=== PATIENT | female | born 2000 | race African-American/Black ===

== ENCOUNTER 2020-05-08 18:07 | Emergency (ER) | payer BC, SELFPAY ==
[2020-05-08 18:22] VITALS: BP 117/72; PULSE 86; RESP 16; TEMP 36.8; O2SAT 100
--- NOTE | 2020-05-08 18:50 | ED.GENADULT ---
HPI - General Adult General Chief complaint: Upper Respiratory Infection Stated complaint: sore throat Time Seen by Provider: 05/08/20 18:50 Source: patient and RN notes reviewed Mode of arrival: ambulatory Limitations: no limitations History of Present Illness HPI narrative: 20-year-old -[place] female presents with complaints of sore throat and runny nose for the past 3 days. Claritin and medication for sore throat without relief. No high fevers, drooling, neck or throat swelling. Pain is bilateral. Hurts to swallow. Exacerbation factors consist of eating and drinking. Rhinorrhea and nasal congestion. No voice change. No nausea, vomiting, or abdominal pain. Tolerating liquids well. Denies chills, dyspnea, difficulty swallowing, jaw pain, dental pain, facial pain, foreign body sensation, and rash. LMP 04/11/20. Remains active. The patient reports she have not been diagnosed with COVID-19. Eliana does work at [employer]. The patient reports she is not waiting for the results of a COVID-19 lab test. The patient reports she do not have fever, chills, weakness, or fatigue. The patient reports she do not have a new or worsening cough or shortness of breath. Denies chest pain. The patient reports she do not have any loss of taste, sore throat, and diarrhea. Denies recent traveling. Denies concerns for COVID-19 or exposures been home with limited outdoor exposure except for essential household needs, work, and return home. At this time, patient is not suspected of having COVID-19. Some parts of this dictation were generated by voice recognition software and may contain typographical and/or grammatical inaccuracies. Related Data Allergies Allergy/AdvReac Type Severity Reaction Status Date / Time pineapple Allergy Hives Verified 06/21/19 10:14 Review of Systems Review of Systems: Narrative: CONSTITUTIONAL: Denies fever, chills, sweats. EYES: Denies visual changes, redness, discharge. ENT: Denies otalgia. Complains of sore throat, rhinorrhea, congestion. CARDIOVASCULAR: Denies chest pain, palpitations, edema. RESPIRATORY: Denies dyspnea, wheezing, cough. GASTROINTESTINAL: Denies abdominal pain, nausea, vomiting, diarrhea. GENITOURINARY: Denies dysuria, hematuria, abnormal discharge. SKIN: Denies rash or itching. MUSCULOSKELETAL: Denies acute back pain, joint pain, or myalgia. NEUROLOGIC: Denies numbness or focal weakness. PSYCHIATRIC: Denies anxiety or depression. All systems reviewed & are unremarkable except as noted in HPI and below. [facility] Past Medical History Medical History (Updated 05/09/20 @ 00:00 by Ara Daesdras) Asthma Surgical History Surgical History (Updated 05/08/20 @ 19:10 by SUN Bond) No significant past surgical history Family History Family History (Updated 05/08/20 @ 19:11 by SUN Bond) Father , Gun violence Murder Mother Diabetes mellitus Social History Social History (Updated 05/08/20 @ 19:11 by SUN Bond) Smoking status: Never smoker Tobacco type: cigarettes Second hand tobacco smoke exposure: No Alcohol intake: never Substance use: former Substance use type: marijuana Living arrangements: with family Occupation/Education: occupation Gender identity (if verbalized by the patient): Female Sexual Orientation (if Verbalized by the Patient): Straight or Heterosexual Comments At time of signature, agree with nurse past medical, surgical, social, and family history. There is no relevant family history pertinent to the presenting complaint. Exam Narrative: Exam Narrative: GENERAL: This is a well-nourished, well-developed patient, in no apparent distress. Speaks in full sentences without deficits and ambulates with steady gait without dyspnea. HEAD: normocephalic, atraumatic. EYES: PERRL. Sclera clear/white. Vision is grossly intact. EARS: External ears normal, auditory canals clear and without drai
== END 2020-05-08 19:07 | disposition home or self-care (01) ==
PROVIDERS: Emergency Provider Nurse Practitioner Family
DX: J02.9 Acute pharyngitis, unspecified (principal); Z20.828 Contact with and (suspected) exposure to other viral communicable diseases
CPT/HCPCS: 87081; 87804; 87880; 99213; G0463

== ENCOUNTER 2020-06-12 14:03 | Emergency (ER) | payer BC, SELFPAY ==
[2020-06-12 14:10] VITALS: BP 116/70; PULSE 92; RESP 18; TEMP 36.8; O2SAT 100
--- NOTE | 2020-06-12 14:42 | ED.NAVMDI ---
HPI - Nausea/Vomiting/Diarrhea General Chief complaint: Nausea/Vomiting/Diarrhea Stated complaint: Throwing Up Source: patient and RN notes reviewed Limitations: no limitations History of Present Illness HPI Narrative: The patient, previously healthy, presents with emesis. Patient states she is LMP about 10 April and now has twice daily episodic vomiting.No fever, diarrhea, frequency/urgency/dysuria, cough, loss of taste/smell, S OB, dehydration, lightheadedness,CP. Symptoms are mild, worse upon eating in the morning. Related Data Allergies Allergy/AdvReac Type Severity Reaction Status Date / Time pineapple Allergy Hives Verified 06/12/20 14:07 Review of Systems Review of Systems: Narrative: General/Constitutional: No weight loss,fever Eyes: N0: Redness,discharge Ears/Nose/Throat: No: Epistaxis,ear discharge Respiratory: Denies: Hemoptysis Gastrointestinal: No Vomiting, Bleeding-rectal Skin: No Lumps, eruption Neurologic: No Focal Weakness,Sz Hematologic: Denies: Petechiae/Purpura Psychiatric: No: Suicida ideationl All Other Systems: Reviewed and Negative [facility] Past Medical History Medical History (Updated 06/12/20 @ 14:49 by Srini Alberto MD) Asthma Surgical History Surgical History (Updated 05/08/20 @ 19:10 by SUN Bond) No significant past surgical history Family History Family History (Updated 05/08/20 @ 19:11 by SUN Bond) Father , Gun violence Murder Mother Diabetes mellitus Social History Social History (Updated 05/08/20 @ 19:11 by SUN Bond) Smoking status: Never smoker Tobacco type: cigarettes Second hand tobacco smoke exposure: No Alcohol intake: never Substance use: former Substance use type: marijuana Gender identity (if verbalized by the patient): Female Comments At time of signature, agree with nursing past medical, surgical, social and family history. There is no relevant family history pertinent to the presenting complaint Exam Narrative: Exam Narrative: General Appearance: Well appearing, No distress EYE: PERRLA, Conjunctiva clear Ears: External ear normal Nose: Normal nose Mouth/Throat: Normal appearing, Normal lips Neck: Supple Respiratory: Airway patent, No respiratory distress Cardiovascular: RRR Abdomen: Soft, Non-tender, Musculoskeletal: Full ROM Skin: Warm, Dry Neurological: A&O x3,, Normal affect Course Vital Signs Vital signs: Vital Signs Temperature 98.3 F 06/12/20 14:10 Pulse Rate 92 06/12/20 14:10 Respiratory Rate 18 06/12/20 14:10 Blood Pressure 116/70 06/12/20 14:10 Pulse Oximetry 100 06/12/20 14:10 Temperature 98.3 F 06/12/20 14:10 Pulse Rate 92 06/12/20 14:10 Respiratory Rate 18 06/12/20 14:10 Blood Pressure 116/70 06/12/20 14:10 Pulse Oximetry 100 06/12/20 14:10 MDM - Nausea/Vomiting/Diarrhea Lab Data Labs: UCG Bedside Result Positive Reference Range: Negative Discharge Plan Discharge Clinical Impression: Antepartum complication of Vomiting Qualifiers: Vomiting type: unspecified Vomiting Intractability: non-intractable Nausea presence: unspecified Qualified Code(s): R11.10 - Vomiting, unspecified Patient Disposition: Home, Self-Care Condition: Stable Instructions: Hyperemesis Gravidarum (ED) Prescriptions: New lazaraat.vits,rufina,[id number] Tablet 1 tablet PO DAILY Qty: 30 RF: 0 prochlorperazine maleate [Compazine] 10 mg tablet 10 mg PO Q8H PRN (Reason: nausea and vomiting) Qty: 20 RF: 2 promethazine 6.25 mg/5 mL syrup 12.5 mg PO Q4H PRN (Reason: nausea and vomiting) Qty: 100 RF: 1 Follow-up/Referrals: UNKNOWN,DOCTOR [Primary Care Provider] -
== END 2020-06-12 15:01 | disposition home or self-care (01) ==
PROVIDERS: Emergency Provider Emergency Medicine
DX: O21.9 Vomiting of pregnancy, unspecified (principal); Z3A.00 Weeks of gestation of pregnancy not specified
CPT/HCPCS: 81025; 99213; G0463

== ENCOUNTER 2020-06-21 09:36 | Emergency (ER) | payer BC, SELFPAY ==
--- NOTE | 2020-06-21 10:13 | PC.NURSE ---
in br to obtain ua spec.
[2020-06-21 10:16] VITALS: BP 112/62; PULSE 77; RESP 16; TEMP 37.1; O2SAT 99
[2020-06-21 10:25] VITALS: BP 112/62; PULSE 77; RESP 16; TEMP 37.1; O2SAT 99
--- NOTE | 2020-06-21 10:37 | ED.FEMALEGU ---
HPI - Female Genitourinary General Chief complaint: Urogenital-Female Stated complaint: poss yeast infection Source: patient Mode of arrival: ambulatory Limitations: no limitations History of Present Illness HPI Narrative: Patient is a 20-year-old female who presents complaining of yellow vaginal discharge x2 days. She reports small amount that is visible on a panty liner. She reports taking a bath with new soap. She denies exposure to STDs. She denies urinary complaints. She denies pain at this time, reports vaginal itching. Patient is . She reports she thinks about 2 months. She has not seen [facility] at this time. She does not have an [facility]. Related Data Home Medications Medication Instructions Recorded Confirmed fluticasone propionate INTRANASAL 06/21/20 Allergies Allergy/AdvReac Type Severity Reaction Status Date / Time pineapple Allergy Hives Verified 06/12/20 14:07 Review of Systems Review of Systems: Narrative: CONSTITUTIONAL: Denies fever, chills, or sweats. EYES: Denies visual changes, redness, or discharge. ENT: Denies rhinorrhea, congestion, sore throat, or otalgia. CARDIOVASCULAR: Denies chest pain, palpitations, or edema. RESPIRATORY: Denies cough or dyspnea. GASTROINTESTINAL: Denies abdominal pain, nausea, vomiting, or diarrhea. GENITOURINARY: Reports vaginal discharge and itching SKIN: Denies rash or itching. MUSCULOSKELETAL: Denies back pain, joint pain, or myalgia. NEUROLOGIC: Denies headache, numbness, dizziness, or weakness. PSYCHIATRIC: Denies anxiety or depression. [facility] Past Medical History Medical History Asthma Surgical History Surgical History No significant past surgical history Family History Family History Father , Gun violence Murder Mother Diabetes mellitus Social History Social History Smoking status: Never smoker Tobacco type: cigarettes Second hand tobacco smoke exposure: No Alcohol intake: never Substance use: former Substance use type: marijuana Gender identity (if verbalized by the patient): Female Exam Narrative: Exam Narrative: GENERAL: Well-appearing, well-nourished, and in no acute distress. HEAD: Normocephalic, atraumatic. EYES: No redness or drainage. ENT: Mucous membranes pink and moist. CHEST: No respiratory distress. HEART: Regular rate and rhythm. : Pelvic exam: Thick yellow discharge noted, cervix closed EXTREMITIES: Normal range of motion. SKIN: Warm, dry, no rash. NEURO: No focal deficits. Alert and oriented x3. Gait steady. PSYCH: Normal affect. No signs of depression or anxiety. Course Vital Signs Vital signs: Vital Signs Temperature 37.1 C 06/21/20 10:16 Pulse Rate 77 06/21/20 10:16 Respiratory Rate 16 06/21/20 10:16 Blood Pressure 112/62 06/21/20 10:16 Pulse Oximetry 99 06/21/20 10:16 Temperature 37.1 C 06/21/20 10:25 Pulse Rate 77 06/21/20 10:25 Respiratory Rate 16 06/21/20 10:25 Blood Pressure 112/62 06/21/20 10:25 Pulse Oximetry 99 06/21/20 10:25 MDM - Female Genitourinary MDM Narrative Medical decision making narrative: Patient refusing STD testing at this time. Requesting treatment for yeast infection. Discussed with patient about following up with [facility]. [facility] referral given. Patient given 1 dose of Diflucan and to follow-up with [facility] in 3 days. Differential Diagnosis Differential diagnosis: Likely bacterial vaginosis and vaginitis Lab Data Labs: Urine Glucose Negative Reference Range: Negative Urine Glucose Negative Reference Range: Negative Urine Bilirubin Negative
== END 2020-06-21 11:01 | disposition home or self-care (01) ==
PROVIDERS: Emergency Provider Nurse Practitioner
DX: B37.3 Candidiasis of vulva and vagina (principal); J45.909 Unspecified asthma, uncomplicated
CPT/HCPCS: 81003; 99213; G0463

== ENCOUNTER 2020-10-02 11:01 | Emergency (ER) | payer BC, SELFPAY ==
--- NOTE | 2020-10-02 11:13 | ED.FEMALEGU ---
HPI - Female Genitourinary General Chief complaint: Urogenital-Female Stated complaint: Yeast Infection Time Seen by Provider: 10/02/20 11:14 Source: patient, RN notes reviewed and old records reviewed Mode of arrival: ambulatory Limitations: no limitations History of Present Illness HPI Narrative: 20-year-old female presents to [facility] with lower abdominal intermittent cramping and vaginal discharge since this morning. Reports she is approximately 23 weeks . 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 Describes the vaginal discharge is yellow in color. Related Data Allergies Allergy/AdvReac Type Severity Reaction Status Date / Time pineapple Allergy Hives Verified 06/12/20 14:07 Review of Systems Review of Systems: Narrative: CONSTITUTIONAL: Denies fever, chills, or sweats. CARDIOVASCULAR: Denies chest pain, palpitations, or edema. RESPIRATORY: Denies cough or dyspnea. GASTROINTESTINAL: lower abdominal cramping. Denies nausea, vomiting, or diarrhea. GENITOURINARY: Denies dysuria or hematuria. reports vaginal discharge, yellow in color SKIN: Denies rash or itching. MUSCULOSKELETAL: Denies back pain, joint pain, or myalgia. NEUROLOGIC: Denies headache, numbness, or weakness. PSYCHIATRIC: Denies anxiety or depression. All other systems reviewed are negative, except as documented in HPI. PMFSH Past Medical History Medical History Asthma Surgical History Surgical History No significant past surgical history Family History Family History Father , Gun violence Murder Mother Diabetes mellitus Social History Social History Smoking status: Never smoker Tobacco type: cigarettes Second hand tobacco smoke exposure: No Alcohol intake: never Substance use: former Substance use type: marijuana Gender identity (if verbalized by the patient): Female Comments At the time of my signature, I reviewed and agree with the nursing past medical, surgical, social, and family history. There is no relevant family history pertinent to the patient complaint. Exam Narrative: Exam Narrative: GENERAL: This is a well-nourished, well-developed patient, in no apparent distress. HEAD: normocephalic, atraumatic. EYES: PERRL. Sclera clear/white. Vision is grossly intact. NECK: Neck supple, non-tender without lymphadenopathy, masses or thyromegaly. CARDIOVASCULAR: Regular rate and rhythm without murmurs, gallops, or rubs. RESPIRATORY: Clear to auscultation. Breath sounds equal bilaterally. No wheezes, rales, or rhonchi. GASTROINTESTINAL: Tenderness lower abdominal, belly SKIN: warm, intact with no suspicious lesions or rash, good texture and turgor. NEURO: awake, alert, and oriented to person, place and time. There were no obvious focal neurologic abnormalities. EXTREMITIES: No clubbing, cyanosis, or edema. No joint tenderness, effusion, or edema noted. BACK: Nontender without deformity or crepitance. No flank tenderness. Course Vital Signs Vital signs: Vital Signs Temperature 97.7 F 10/02/20 11:16 Pulse Rate 98 10/02/20 11:16 Respiratory Rate 16 10/02/20 11:16 Blood Pressure 105/57 L 10/02/20 11:16 Pulse Oximetry 99 10/02/20 11:16 Temperature 97.7 F 10/02/20 11:16 Pulse Rate 98 10/02/20 11:16 Respiratory Rate 16 10/02/20 11:16 Blood Pressure 105/57 L 10/02/20 11:16 Pulse Oximetry 99 10/02/20 11:16 Reviewed Transfer Transfered to: [facility] (OB) Transfer rationale: Due to lower abdominal cramping, patient 23 weeks . No OB services available here needs to go and seek appropriate care Accepting physician: Dr Payan Spoke with traffic analyst Ann. MDM - Female Genitourinary MDM Narrative Medical decision making narrative: instructions directly
[2020-10-02 11:16] VITALS: BP 105/57; PULSE 98; RESP 16; TEMP 36.5; O2SAT 99
--- NOTE | 2020-10-02 11:18 | PC.NURSE ---
in br to obtain ua spec.
--- NOTE | 2020-10-02 11:24 | PC.NURSE ---
requested to be further evaluated at [facility] after exam by canal tender.
--- NOTE | 2020-10-02 12:03 | PC.NURSE ---
chart was faxed to [facility] at [phone]
== END 2020-10-02 11:28 ==
LOC: EXPCOLL 11:03
PROVIDERS: Emergency Provider Nurse Practitioner
DX: O26.892 Other specified pregnancy related conditions, second trimester (principal); Z3A.23 23 weeks gestation of pregnancy; R10.31 Right lower quadrant pain; R10.32 Left lower quadrant pain; O99.891 Other specified diseases and conditions complicating pregnancy; N89.8 Other specified noninflammatory disorders of vagina
CPT/HCPCS: 81003; 99212; G0463

== ENCOUNTER 2020-10-02 12:17 | Observation (INO) | payer BC, SELFPAY ==
[2020-10-02 12:33] VITALS: TEMP 36.2
[2020-10-02 12:45] VITALS: BMI 24.7
--- NOTE | 2020-10-02 12:45 | OBADM ---
This patient, Eliana Arrington, admitted to the OB room OB Post 112 for observation. Patient/family oriented to hospital policies and general routines including ID bracelet, bed and alarms, visiting hours, pain management, procedures, bathroom and other care routines, personal items, smoking policy, room service/diet, and visiting hours. Patient/Family are encouraged to report perceived risks to care and to ask questions if they do not understand what they are told or what they should do. Pt. received from the ED via wheelchair, verbalizes uterine cramping since approx. 0900 this am, denies vaginal bleeding and leaking. Pt. denies any complication with this and reports her only health concern is that she has asthma, but hasn't used her inhaler since she was 13y.o. Abdomen soft and non-tender upon palpation, EFM X2 applied and will monitor.
[2020-10-02 12:46] VITALS: BP 97/78; PULSE 98
[2020-10-02 13:00] VITALS: BP 100/65; PULSE 95
[2020-10-02 13:15] VITALS: BP 101/63; PULSE 91
[2020-10-02 13:20] LABS: Add Urine Microscopic? YES; Amorphous Sediment Urine Few; Appearance Urine Cloudy (Clear); Bacteria Urine Trace /hpf; Bilirubin Urine Negative (Negative); Blood Urine Negative (Negative); Color Urine Yellow (Yellow); Glucose Urine UA Negative (Negative); Ketones Urine Negative (Negative); Leukocyte Esterase Ur 1+ LEU/UL (Negative); Mucus Urine Rare /lpf; Nitrate Urine Negative (Negative); Protein Urine 1+ mg/dL (Negative); Specific Grav Ur 1.015 (1.001-1.035); Squamous Epithelial Cell Urine Few /hpf (Few); Urobilinogen Urine Negative mg/dL (<2.0); WBC Urine 0-3 /hpf
[2020-10-02 13:30] VITALS: BP 104/70; PULSE 83
--- NOTE | 2020-10-03 12:21 | P.PNOB_ITS ---
OB - Triage/Final Diagnosis Visit Information Comments/Additional reasons for admission: I have assessed the risk for this patient, Eliana Arrington, and determined that she would benefit from observation care. Evaluation Laboratory results: Laboratory Tests 10/02/20 13:07 Urine Color Yellow Urine Appearance Cloudy H Urine pH 8.0 Ur Specific [place] 1.015 Urine Protein 1+ H Urine Glucose (UA) Negative Urine Ketones Negative Ur Blood (Man) Negative Urine Nitrate Negative Urine Bilirubin Negative Urine Urobilinogen Negative Leukocyte Esterase Rfl 1+ H Urine RBC 3-5 H Urine WBC 0-3 Ur Squamous Epith Cells Few Amorphous Sediment Few H Urine Bacteria Trace Urine Mucus Rare Final Diagnosis (1) Abdominal pain affecting : Code(s): O26.899 - Other specified related conditions, unspecified trimester; R10.9 - Unspecified abdominal pain Status: Acute
== END 2020-10-02 14:06 | disposition home or self-care (01) ==
PROVIDERS: Admitting Provider Obstetrics & Gynecology; Visit Provider Obstetrics & Gynecology
DX: O26.899 Other specified pregnancy related conditions, unspecified trimester (principal); R10.9 Unspecified abdominal pain; Z3A.00 Weeks of gestation of pregnancy not specified
CPT/HCPCS: 81001; 81003; 99212; G0378; G0379; G0463

== ENCOUNTER 2021-02-15 12:48 | Emergency (ER) | payer BC, SELFPAY ==
[2021-02-15 12:57] VITALS: BP 138/66; PULSE 71; RESP 16; TEMP 36.6; O2SAT 100
--- NOTE | 2021-02-15 13:21 | ED.FEMALEGU ---
HPI - Female Genitourinary General Chief complaint: Urogenital-Female Stated complaint: Yeast Infection Time Seen by Provider: 02/15/21 13:21 Source: patient and RN notes reviewed Mode of arrival: ambulatory Limitations: no limitations History of Present Illness HPI Narrative: 20-year-old female presents to the [facility] with concerns that her stitches vaginally have come out, has a yeast infection. Patient states that she had a vaginal delivery on January 05. 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 States that she has had some patient to follow-up in 2-3 days with primary care provider. And believes she has a yeast infection. 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 No nausea vomiting or diarrhea. Related Data Allergies Allergy/AdvReac Type Severity Reaction Status Date / Time pineapple Allergy Hives Verified 06/12/20 14:07 Review of Systems Review of Systems: All systems reviewed & are unremarkable except as noted in HPI and below Constitutional: Constitutional: Reports no additional constitutional complaints, Denies chills and Denies fatigue Eyes: Eyes: Reports no additional eye complaints ENT: Reports system reviewed and no additional complaints, except as documented Cardiovascular: Cardiovascular: Reports no additional cardiovascular complaints and Denies chest pain Respiratory: Respiratory: Reports no additional respiratory complaints, Denies cough and Denies dyspnea Gastrointestinal: Gastrointestinal: Reports no additional gastrointestinal complaints, Denies abdominal pain, Denies diarrhea, Denies nausea and Denies vomiting Genitourinary: Genitourinary: Reports as per HPI and Reports vaginal discharge Musculoskeletal: Musculoskeletal: Reports no additional musculoskeletal complaints Integumentary/Breasts: Skin/Breast: Reports system reviewed and no additional complaints, except as docu Neurologic: Reports system reviewed and no additional complaints, except as documented Allergic/Immunologic: Allergic/Immunologic: Reports no additional allergic/immunologic complaints PMFSH Past Medical History Medical History Asthma Surgical History Surgical History No significant past surgical history Family History Family History Father , Gun violence Murder Mother Diabetes mellitus Social History Social History Smoking status: Never smoker Tobacco type: cigarettes Second hand tobacco smoke exposure: No Alcohol intake: never Substance use: former Substance use type: marijuana Gender identity (if verbalized by the patient): Female Comments At the time of my signature, I reviewed and agree with the nursing past medical, surgical, social, and family history. There is no relevant family history pertinent to the patient complaint. Exam Const: General: healthy appearing, no acute distress and alert Nutritional Appearance: well nourished Orientation/consciousness: patient oriented x3 HENMT: Head: normal to inspection Eyes: Pupils: Equal, round and reactive pupils present Neck: Neck: normal visual inspection, no lymphadenopathy and no meningeal signs Chest: Chest palpation & inspection: normal inspection of the chest Resp: Effort & Inspection: normal respiratory effort and no use of accessory muscles Auscultation: clear to auscultation bilaterally, no crackles, no rales, no rhonchi and no wheezes Cardio: Rate: regular rate Rhythm: regular rhythm GI: GI Palp: Yes Soft to palpation and No Tenderness to palpation present (GI) : General: Yes no CVA tenderness External Female Exam: normal external appearance Speculum Exam - Vagina: abnormal vaginal discharge malodorous, yellow and other (Green thick), er
[2021-02-15] MEDS: cefTRIAXone 1 GM VIAL IM (13:58)
[2021-02-15] MEDS: LIDOCAINE HCL 1% LOCAL INJ 20 ML VIAL 2.1 ML IM (13:58)
== END 2021-02-15 14:28 | disposition home or self-care (01) ==
PROVIDERS: Emergency Provider Nurse Practitioner
DX: N76.0 Acute vaginitis (principal); B37.3 Candidiasis of vulva and vagina; J45.909 Unspecified asthma, uncomplicated
CPT/HCPCS: 87070; 87491; 87591; 87661; 96372; 99214; G0463; J0696

== ENCOUNTER 2021-05-30 09:53 | Emergency (ER) | payer BC, SELFPAY ==
[2021-05-30 10:02] VITALS: BP 121/84; PULSE 77; RESP 16; TEMP 36.6; O2SAT 99
--- NOTE | 2021-05-30 10:58 | ED.ALLEREA ---
HPI - Allergic Reaction General Chief complaint: Allergic Reaction Stated complaint: allergic reaction Time Seen by Provider: 05/30/21 11:02 Source: patient and RN notes reviewed Mode of arrival: ambulatory Limitations: no limitations History of Present Illness HPI narrative: 21-year-old female presents concern for possible allergic reaction. Reports she is allergic to pineapple. Reports last night she ate gummy bears, she tried not to eat the pineapple flavored gummy bears. Reports shortly after she began having lip swelling and tongue itching. Reports she took 1 Benadryl after that happened. Reports she took a second Benadryl this morning at 8 AM. Reports resolution with the tongue itching, and improvement with the lip swelling. She denies nausea, vomiting, diarrhea, fever. Denies trouble breathing, stridor, wheezing. MD complaint: allergic reaction Related Data Home Medications Medication Instructions Recorded Confirmed norgestimate-ethinyl estradiol tablet 05/30/21 [Estarylla] omeprazole 05/30/21 Allergies Allergy/AdvReac Type Severity Reaction Status Date / Time pineapple Allergy Hives Verified 06/12/20 14:07 Review of Systems Review of Systems: CONSTITUTIONAL: Denies malaise, chills, sweats, or fever. EYES: Denies visual changes, redness, or discharge. ENT: Denies rhinorrhea, congestion, sinus pain, otalgia or sore throat. Reports lip swelling and history of tongue itching CARDIOVASCULAR: Denies chest pain, palpitations, or edema. RESPIRATORY: Denies cough or dyspnea. GASTROINTESTINAL: Denies abdominal pain, nausea, vomiting, diarrhea SKIN: Denies rash or itching. MUSCULOSKELETAL: Denies myalgia. All systems reviewed & are unremarkable except as noted in HPI and below PMFSH Past Medical History Medical History Asthma Surgical History Surgical History No significant past surgical history Family History Family History Father , Gun violence Murder Mother Diabetes mellitus Social History Social History Smoking status: Never smoker Tobacco type: cigarettes Second hand tobacco smoke exposure: No Alcohol intake: never Substance use: former Substance use type: marijuana Gender identity (if verbalized by the patient): Female Sexual Orientation (if Verbalized by the Patient): Straight or Heterosexual Comments At time of signature, agree with nursing past medical, surgical, social and family history. There is no relevant family history pertinent to the presenting complaint Exam Narrative: GENERAL: Well-appearing, well-nourished, and in no acute distress. HEAD: Normocephalic, atraumatic. EYES: PERRLA, sclera clear, and EOMI. No nystagmus. ENT: Nares clear, turbinates pink, no rhinorrhea or epistaxis. Mucous membranes moist. TM pearly hagan with sharp light reflex bilaterally; no tragal tenderness. Oropharynx without erythema or lesions. Tonsils not enlarged and without exudate. NECK: Supple. No lymphadenopathy. No jugular venous distension, thyromegaly, or carotid bruits. Carotids were easily palpable bilaterally. CHEST: No respiratory distress. Clear to auscultation. No bony deformities, no asymmetry. Speaks in full sentences. HEART: Regular rate and rhythm. No murmur heard. Normal peripheral pulses. ABDOMEN: Soft, nontender, nondistended, normal active bowel sounds, no palpable masses. EXTREMITIES: Normal range of motion. No edema. Normal strength and sensation. SKIN: Warm, dry, no visible rash. NEURO: Alert and oriented x3. No focal deficits. Cranial nerves II through XII grossly intact PSYCH: Normal mood and affect Course Course Emergency Course: Patient is aware of diagnosis, understands and agrees to treatment plan. Anticipatory guidance given. Patient agrees to follow-u
== END 2021-05-30 11:19 | disposition home or self-care (01) ==
PROVIDERS: Emergency Provider Nurse Practitioner
DX: R19.7 Diarrhea, unspecified (principal); R50.9 Fever, unspecified; T78.1XXA Other adverse food reactions, not elsewhere classified, initial encounter; X58.XXXA Exposure to other specified factors, initial encounter; J45.909 Unspecified asthma, uncomplicated
CPT/HCPCS: 99211; G0463

== ENCOUNTER 2023-02-16 16:49 | Emergency (ER) | payer BC, SELFPAY ==
[2023-02-16 17:05] VITALS: BP 117/72; PULSE 72; RESP 16; TEMP 36.9; O2SAT 100
--- NOTE | 2023-02-16 17:37 | ED.SKABFB ---
HPI - Skin/Abscess/Foreign Bdy General Chief complaint: Skin/Abscess/Foreign Body Stated complaint: spot on forehead Time Seen by Provider: 02/16/23 17:37 Source: patient Mode of arrival: ambulatory Limitations: no limitations History of Present Illness HPI narrative: 22-year-old female presents with complaint of redness and pus draining from wound to forehead. Reports that she states that she thought a good she got a chemical burn from using to face lotions together. States that she had 3 red bumps that scabbed. States that now she has redness and pus, and scabbed. All systems reviewed and negative except as noted above. Related Data Allergies Allergy/AdvReac Type Severity Reaction Status Date / Time pineapple Allergy Swelling Verified 02/16/23 17:15 of Lip/Tongue/Throat Review of Systems Review of Systems: CONSTITUTIONAL: Denies fever, chills, or sweats. EYES: Denies visual changes, redness, or discharge. ENT: Denies rhinorrhea, congestion, sore throat, or otalgia. CARDIOVASCULAR: Denies chest pain, palpitations, or edema. RESPIRATORY: Denies cough or dyspnea. GASTROINTESTINAL: Denies abdominal pain, nausea, vomiting, or diarrhea. GENITOURINARY: Denies dysuria or hematuria. SKIN: Denies rash or itching. Redness and pus coming from a wound to forehead. MUSCULOSKELETAL: Denies back pain, joint pain, or myalgia. NEUROLOGIC: Denies headache, numbness, or weakness. PSYCHIATRIC: Denies anxiety or depression. All other systems reviewed are negative, except as documented in HPI. [facility] Past Medical History Medical History Asthma Surgical History Surgical History No significant past surgical history Family History Family History Father , Gun violence Murder Mother Diabetes mellitus Social History Social History Smoking status: Never smoker Tobacco type: cigarettes Second hand tobacco smoke exposure: No Alcohol intake: never Substance use: former Substance use type: marijuana Living arrangements: with family Occupation/Education: occupation Gender identity (if verbalized by the patient): Female Sexual Orientation (if Verbalized by the Patient): Straight or Heterosexual Comments At time of signature, agree with nursing past medical, surgical, social and family history. There is no relevant family history pertinent to the presenting complaint. Exam Narrative: GENERAL: This is a well-nourished, well-developed patient, in no apparent distress. HEAD: normocephalic, atraumatic. EYES: PERRL. Sclera clear/white. Vision is grossly intact. EARS: External ears normal NOSE: External nose normal NECK: Neck supple, non-tender without lymphadenopathy, masses or thyromegaly. CARDIOVASCULAR: Regular rate and rhythm without murmurs, gallops, or rubs. RESPIRATORY: Clear to auscultation. Breath sounds equal bilaterally. No wheezes, rales, or rhonchi. SKIN: warm, Dry, intact with no suspicious lesions or rash, good texture and turgor. 2 small scabs to forehead less than 1cm with mild surround erythema. no drainage. noted. NEURO: awake, alert, and oriented to person, place and time. There were no obvious focal neurologic abnormalities. EXTREMITIES: No joint tenderness, effusion, or edema noted. Course Course Level of Care: Express Care Visit Vital Signs Vital signs: Vital Signs Temperature 36.9 C 02/16/23 17:05 Pulse Rate 72 02/16/23 17:05 Respiratory Rate 16 02/16/23 17:05 Blood Pressure 117/72 02/16/23 17:05 Pulse Oximetry 100 02/16/23 17:05 Oxygen Delivery Room Air 02/16/23 17:05 Temperature 36.9 C 02/16/23 17:05 Pulse Rate 72 02/16/23 17:05 Respiratory Rate 16 02/16/23 17:05 Blood Pressure 117/72 02/16/23 17:05 Pulse Ox
== END 2023-02-16 17:43 | disposition home or self-care (01) ==
PROVIDERS: Emergency Provider Nurse Practitioner Family
DX: S01.80XA Unspecified open wound of other part of head, initial encounter (principal); L08.9 Local infection of the skin and subcutaneous tissue, unspecified; X58.XXXA Exposure to other specified factors, initial encounter; J45.909 Unspecified asthma, uncomplicated
CPT/HCPCS: 99213; G0463

== ENCOUNTER 2024-09-10 18:13 | Emergency (ER) | payer BC, SELFPAY ==
--- NOTE | 2024-09-10 18:20 | ED.GENADULT ---
HPI - General Adult General Chief complaint: Urogenital-Female Stated complaint: test Time Seen by Provider: 09/10/24 18:15 Source: patient Mode of arrival: ambulatory Limitations: no limitations History of Present Illness HPI narrative: Patient is 24-year-old female who presents for a test. Patient states she had a baby 2 months ago and has not had a menstrual cycle since. Patient states she took 2 tests at home 1 was positive and 1 was negative so she would just wants verification. Related Data Allergies Allergy/AdvReac Type Severity Reaction Status Date / Time pineapple Allergy Swelling Verified 09/10/24 18:20 of Lip/Tongue/Throat Review of Systems Review of Systems: All systems reviewed & are unremarkable except as noted in HPI and below Constitutional: Constitutional: Denies body ache(s), Denies chills, Denies fatigue, Denies fever(s), Denies headache(s), Denies malaise and Denies weakness Eyes: Eyes: Denies blurry vision, Denies irritation and Denies loss of vision ENT: Denies otalgia, Denies headache(s), Denies nasal discharge, Denies sinus pain and Denies sore throat Cardiovascular: Cardiovascular: Denies chest pain, Denies irregular heart rhythm and Denies dyspnea Respiratory: Respiratory: Denies dyspnea Gastrointestinal: Gastrointestinal: Denies abdominal pain, Denies melena, Denies hematochezia, Denies diarrhea, Denies nausea and Denies vomiting Musculoskeletal: Musculoskeletal: Denies back pain, Denies myalgias and Denies arthralgias Integumentary/Breasts: Skin/Breast: Denies pruritus and Denies rash Neurologic: Denies headache(s), Denies loss of vision and Denies weakness Psychiatric: Psychiatric: Reports no additional psychiatric complaints Endocrine: Endocrine: Denies fatigue PMFSH Past Medical History Medical History Asthma Surgical History Surgical History No significant past surgical history Family History Family History Father , Gun violence Murder Mother Diabetes mellitus Social History Social History Smoking status: Never smoker Tobacco type: cigarettes Second hand tobacco smoke exposure: No Alcohol intake: never Substance use: former Substance use type: marijuana Living arrangements: with family Occupation/Education: occupation Gender identity (if verbalized by the patient): Female Sexual Orientation (if Verbalized by the Patient): Straight or Heterosexual Comments At time of signature, agree with nursing past medical, surgical, social and family history. There is no relevant family history pertinent to the presenting complaint. Exam Const: General: cooperative, healthy appearing, comfortable, no acute distress and well nourished Nutritional Appearance: well nourished Orientation/consciousness: patient oriented x3 Limitations: no limitations HENMT: Head: normal to inspection, normocephalic and atraumatic Ears: hearing grossly normal bilaterally and external ears normal Face/Nose/Sinus: Normal external nose present, normal facial exam and face symmetric Face and sinus: normal facial exam and face symmetric Mouth: Yes lip normal Eyes: General: appearance normal, both eyes and all related structures Alignment and Position: alignment normal and position normal Periorbital: periorbital findings normal Eyelids: eyelids normal Pupils: Equal, round and reactive pupils present EOM: EOMs intact bilaterally Neck: Neck: normal visual inspection, full ROM and supple Chest: Chest palpation & inspection: normal inspection of the chest Resp: Effort & Inspection: normal respiratory effort and able to speak in complete sentences Auscultation: clear to auscultation bilaterally Cardio: Rate: regular rate Rhythm: regular rhythm Heart sounds: S1 normal heart sound present and S2 normal heart sound present GI: Inspection: normal to inspection Skin: General skin exam: normal color and no rashes or lesions noted Neuro: General: patient oriented x3 and moves all extremities Cranial nerves: Yes Equal, round and reactive pupils present Speech: normal speech Gait exam (Neuro): Normal gait present Extrem: General: normal to inspection, full ROM and no edema Psych: Appearance: grossly normal and well kempt Mental Status: mental status grossly normal Speech and movement: Normal speech and movement present Affect: normal affect Attitude: cooperative Thought process: Normal thought process present Course Course Emergency Course: Patient is aware of diagnosis, understands and agrees to treatment plan. Anticipatory guidance given. Patient agrees to follow-up as directed and is aware of reasons to seek care at the emergency department. Portions of this record may have been created with voice recognition software Level of Care: Express Care Visit Vital Signs Vital signs: Vital Signs Temperature 37.1 C 09/10/24 18:31 Pulse Rate 63 09/10/24 18:31 Respiratory Rate 16 09/10/24 18:31 Blood Pressure 126/78 09/10/24 18:31 Pulse Oximetry 100 09/10/24 18:31 Oxygen Delivery Room Air 09/10/24 18:31 Temperature 37.1 C 09/10/24 18:31 Pulse Rate 63 09/10/24 18:31 Respiratory Rate 16 09/10/24 18:31 Blood Pressure 126/78 09/10/24 18:31 Pulse Oximetry 100 09/10/24 18:31 Oxygen Delivery Room Air 09/10/24 18:31 Reviewed Medical Decision Making MDM Narrative Medical decision making narrative: Pt well hydrated appearing, in no respiratory distress, hemodynamically stable. Recommend supportive care. The patient is stable at time of discharge the clinical impression was discussed and the patient was given the opportunity to ask questions, which were addressed as completely as possible given the information available at present. Anticipatory guidance and return to care precautions were discussed and the importance of primary care follow-up was stressed and encouraged. The patient voiced understanding of the plan, indications to return, and the need for follow-up. Exam findings show no acute concerns or changes Patient is appropriate for outpatient treatment and follow-up. Medical Records Medical records reviewed: Yes I reviewed the external patient's medical records. Vital Signs Vital Signs: Vital Signs Temperature 37.1 C 09/10/24 18:31 Pulse Rate 63 09/10/24 18:31 Respiratory Rate 16 09/10/24 18:31 Blood Pressure 126/78 09/10/24 18:31 Pulse Oximetry 100 09/10/24 18:31 Oxygen Delivery Room Air 09/10/24 18:31 Temperature 37.1 C 09/10/24 18:31 Pulse Rate 63 09/10/24 18:31 Respiratory Rate 16 09/10/24 18:31 Blood Pressure 126/78 09/10/24 18:31 Pulse Oximetry 100 09/10/24 18:31 Oxygen Delivery Room Air 09/10/24 18:31 Reviewed Lab Data Lab results reviewed: Yes I reviewed the patient's lab results. Labs: Lab Results 09/10/24 Range/Units 18:32 POC Urine HCG, Qual Negative (Negative) Discharge Plan Discharge Clinical Impression: test negative Patient Disposition: Home, Self-Care Condition: Stable Instructions: (ED) Additional Instructions: Your test was negative As discussed, you may not have a menstrual cycle the entire time your breast feeding. That does not mean you cannot get . Your body may start ovulating at any time prior to having a menstrual cycle. Always use a condom when having sex to prevent . Patient Language: Upper Sorbian Follow-up/Referrals: PHYSICIAN NOT ON STAFF,NONSTAFF [Primary Care Provider] - Time of Disposition: 18:38
[2024-09-10 18:31] VITALS: BP 126/78; PULSE 63; RESP 16; TEMP 37.1; O2SAT 100
[2024-09-10 18:34] LABS: BEDSIDEPREGUCG Negative (Negative)
== END 2024-09-10 18:40 | disposition home or self-care (01) ==
PROVIDERS: Emergency Provider Nurse Practitioner Family
DX: Z32.02 Encounter for pregnancy test, result negative (principal)
CPT/HCPCS: 81025; 99212; G0463

== ENCOUNTER 2024-11-28 09:20 | Emergency (ER) | payer BC, SELFPAY ==
[2024-11-28 09:21] VITALS: BP 107/77; PULSE 80; RESP 20; TEMP 36.5; O2SAT 100
--- NOTE | 2024-11-28 09:21 | ED_ITS ---
HPI - URI/Sore Throat General Chief Complaint: Upper Respiratory Infection Stated Complaint: sore throat, swollen Time Seen by Provider: 11/28/24 09:21 Source: patient Mode of arrival: ambulatory Limitations: no limitations History of Present Illness HPI Narrative: Eliana is a 24-year-old female patient presenting to the clinic today with complaints of sore throat 3-4 days. Also reports a productive cough with some phlegm and some shortness of breath when she lies flat. History of asthma does not have an albuterol inhaler. Does have some nasal drainage and congestion. No fevers, chills, body aches. Denies any chest pain. Related Data Allergies Allergy/AdvReac Type Severity Reaction Status Date / Time pineapple Allergy Swelling Verified 11/28/24 09:24 of Lip/Tongue/Throat Review of Systems Review of Systems: Pertinent positives per HPI. Patient denies any fever, chills, rash, headache, visual changes, dizziness,chest pain, palpitations, nausea, vomiting, diarrhea, constipation, abdominal pain, or any urinary issues. PMFSH Past Medical History Medical History Asthma Surgical History Surgical History No significant past surgical history Family History Family History Father , Gun violence Murder Mother Diabetes mellitus Social History Social History Smoking status: Never smoker Tobacco type: cigarettes Second hand tobacco smoke exposure: No Alcohol intake: never Substance use: former Substance use type: marijuana Living arrangements: with family Occupation/Education: occupation Gender identity (if verbalized by the patient): Female Sexual Orientation (if Verbalized by the Patient): Straight or Heterosexual Comments At the time of my signature, I reviewed and agree with the nursing past medical, surgical, social, and family history. There is no relevant family history pertinent to the patient complaint. Exam Narrative: General: Well-developed, well nourished, in no apparent distress Head: Normocephalic, atraumatic Eyes: Pupils equally round and reactive to light bilaterally, EOM intact, sclera and conjunctive clear, no discharge, lids normal Ears: TMs intact and clear, ear canals clear, no drainage, grossly hearing normal. Nose: Nares patent, clear nasal discharge, moderate inflammation, no sinus tenderness. Mouth: Oral pharynx without lesions or masses, good dentition, MMM. Postnasal drip Neck: Supple, trachea midline, no enlargement of anterior or posterior cervical nodes, no thyroid masses or goiter palpable. Cardio: Regular rate and rhythm, s1 and s2 normal, no murmur appreciated. Resp: Clear to auscultation bilaterally, no rhonchi, rales, wheezing or rubs Course Course Emergency Course: Portions of this record may have been created with voice recognition software. Level of Care: Express Care Visit Vital Signs Vital signs: Vital Signs Temperature 36.5 C 11/28/24 09:21 Pulse Rate 80 11/28/24 09:21 Respiratory Rate 20 11/28/24 09:21 Blood Pressure 107/77 11/28/24 09:21 Pulse Oximetry 100 11/28/24 09:21 Oxygen Delivery Room Air 11/28/24 09:21 Temperature 36.5 C 11/28/24 09:21 Pulse Rate 80 11/28/24 09:21 Respiratory Rate 20 11/28/24 09:21 Blood Pressure 107/77 11/28/24 09:21 Pulse Oximetry 100 11/28/24 09:21 Oxygen Delivery Room Air 11/28/24 09:21 Vital signs reviewed MDM - URI/Sore Throat MDM Narrative Medical decision making narrative: At the time of visit patient is resting comfortably on the exam table. Patient appears to be nontoxic. Labs: Strep test was obtained and was negative in the clinic today. We will send strep for culture. Plan: I suspect patient has history of asthma with pharyngitis/postnasal drip. Patient is not in any respiratory distress in her heart rate is 80 with a saturation rate of 100% on room air. Will send in prescription for albuterol inhaler. Supportive measures were discussed with the patient and they voiced understanding discharge instructions and agrees to treatment plan. Return precautions reviewed Differential Diagnosis Differential diagnosis: Likely upper respiratory infection, otitis media, sinusitis, viral infection, bronchitis, influenza, pharyngitis and other (COVID) Discharge Plan Discharge Clinical Impression: History of asthma Pharyngitis Qualifiers: Pharyngitis/tonsillitis etiology: unspecified etiology Qualified Code(s): J02.9 - Acute pharyngitis, unspecified Patient Disposition: Home Condition: Stable Instructions: Antibiotic Form, Asthma (ED), Pharyngitis (ED) Additional Instructions: Strep test was negative in the clinic today. We will send strep for culture Take prescription medications only as prescribed Increase fluids and stay well hydrated Tylenol/motrin for pain/fever Flonase and OTC antihistamines as directed Vicks vapor rub to open sinuses Sinus rinses for congestion Cepacol spray, cough drops, throat lozenges, warm tea with honey/lemon, gargle salt water to soothe throat BRAT diet for diarrhea Clear liquids x 24 hours then advance as tolerated for nausea/vomiting Go to the ED if you develop a worsening in your condition- high fever not controlled by Tylenol or Motrin, dehydration, weakness, lethargy, shortness of breath, or chest pain. Follow up with your PCP in 3-5 days if symptoms persist. Patient Language: Mexican Prescriptions: New albuterol sulfate 90 mcg/actuation HFA aerosol inhaler 2 puff inhalation Q4-6H PRN (Reason: shortness of breath or wheezing) 30 Days Qty: 8.5 0RF Follow-up/Referrals: PHYSICIAN,COMPARISON SHOPPER [Primary Care Provider] - Stand Alone Forms: Work/School Release IP Time of Disposition: 09:38 Quality NIHSS Nursing Documentation ED NIHSS nursing documentation: reviewed/agree
[2024-11-28 09:43] LABS: EDSTREPNEGPOS1 Negative (Negative)
== END 2024-11-28 09:45 | disposition home or self-care (01) ==
PROVIDERS: Emergency Provider Nurse Practitioner Family
DX: J45.909 Unspecified asthma, uncomplicated (principal); J02.9 Acute pharyngitis, unspecified
CPT/HCPCS: 87081; 87880; 99213; G0463